=== PATIENT | male | born 1955 | race Caucasian/White ===

== ENCOUNTER 2023-01-06 20:46 | Emergency (ER) | payer MEDICARE, OTHER, SELFPAY ==
[2023-01-06 20:56] VITALS: PULSE 86; BMI 27.3
[2023-01-06 21:04] VITALS: BP 99/79; PULSE 64; RESP 16; TEMP 36.2; O2SAT 98
--- NOTE | 2023-01-06 21:07 | MHC.EDTECH ---
patient came in via ems from snf facility ,patient vitals sign taken ,patient was change into physic green jessica and blue pants ,pt very confused ,pt needed to void ,this pct assist pt with urinal ,pt void large amount of urine ,this pct leave patient for about 5 minutes and patient pee on the wall ,pt clothing locked in in bh pod ,pt wanted to keep his house slippers ,pt was getting agitated when i tried to take slippers ,charger operator helper mu said patient could keep slippers,this pct is assign to provide 1:1 with patient .
--- NOTE | 2023-01-06 21:09 | ED.GENADULT ---
HPI - General Adult General Chief complaint: General Medical Stated complaint: AMS Time Seen by Provider: 01/06/23 21:06 Source: EMS and RN notes reviewed Mode of arrival: EMS Limitations: altered mental status History of Present Illness HPI narrative: Patient's history of fronto temporal dementia with behavioral problems per setting in [facility] recently admitted and discharged from [facility] on 01/03/2023 for refusing to take medication and aggressive behavior towards the staff patient medication were adjusted started on Lexapro Namenda Aricept and trazodone and Zyprexa for agitation comes back from skilled nursing as they were unable to manage and patient refusing take the medication again in the ER on arrival patient is calm cooperative in with intermittent agitation was noticed by the staff urinating against a wall Related Data Home Medications Medication Instructions Recorded Confirmed acetaminophen 325 mg tablet 650 mg PO Q6H PRN Fever Or Pain 01/06/23 01/06/23 ascorbic acid (vitamin C) 500 mg 500 mg PO DAILY 01/06/23 01/06/23 tablet docusate sodium 100 mg capsule 100 mg PO DAILY PRN Constipation 01/06/23 01/06/23 (Colace) donepezil 5 mg tablet 5 mg PO DAILY@1500 01/06/23 01/06/23 escitalopram oxalate 10 mg tablet 10 mg PO DAILY 01/06/23 01/06/23 lorazepam 0.5 mg tablet 0.5 mg PO BID PRN Anxiety 01/06/23 01/06/23 melatonin 3 mg tablet 3 mg PO BEDTIME PRN Sleep 01/06/23 01/06/23 memantine 10 mg tablet 10 mg PO DAILY@1500 01/06/23 01/06/23 olanzapine 2.5 mg tablet (Zyprexa) 2.5 mg PO BID 01/06/23 01/06/23 olanzapine 2.5 mg tablet (Zyprexa) 2.5 mg PO TID PRN 01/06/23 01/06/23 agitation/psychosis polyethylene glycol 3350 17 gram 17 g PO DAILY 01/06/23 01/06/23 oral powder packet (Miralax) simethicone 80 mg chewable tablet 80 mg PO Q6H PRN .gas 01/06/23 01/06/23 tamsulosin 0.4 mg capsule 0.4 mg PO BEDTIME 01/06/23 01/06/23 trazodone 50 mg tablet 25 mg PO BID PRN 01/06/23 01/06/23 anxiety/insomnia/mild agitation vitamin E 268 mg (400 unit) capsule 268 mg PO DAILY 01/06/23 01/06/23 Allergies Allergy/AdvReac Type Severity Reaction Status Date / Time No Known Allergies Allergy Verified 01/06/23 21:47 Review of Systems Review of Systems: Yes Unobtainable due to mental status PMFSH Past Medical History Medical History BPH (benign prostatic hyperplasia) Frontotemporal dementia Social History Social History Advance Directives: No Advance Directives Information Provided: No Physical Exam ED Vital Signs: Vital Signs - 24 hr 01/06/23 21:04 01/06/23 22:00 01/07/23 05:50 Temperature 97.2 F 97.4 F 97.9 F Pulse Rate 64 76 54 Respiratory Rate 16 16 19 Blood Pressure 99/79 110/70 124/56 L Pulse Oximetry 98 97 95 Oxygen Delivery Method Room Air Room Air Room Air BMI result Body Mass Index 27.3 Appearance: Alert. Oriented1-2 No acute distress. Eyes: PERRLA, No Nystagmus ENT: Pharynx normal. Oral Mucosa moist Neck: Normal inspection. Neck supple. CVS: Normal heart rate and rhythm. Pulses normal. Respiratory: No respiratory distress. Equal air entry bilateral, no wheezing/rales/rhonchi Abdomen: Soft and nontender. Bowel sounds are present, no mass palpable, no CVA tenderness Skin: Skin warm and dry. Normal skin color. Normal skin turgor. Extremities: No lower extremity edema. No calf tenderness Neuro: Oriented X1-2. No motor deficit. No sensory deficit.No cerebellar signs , cranial nerves II-XII intact Medications Administered Discontinued Medications Generic Name Dose Route Start Last Admin Trade Name Freq PRN Reason Stop Dose Admin Olanzapine 5 mg 01/06/23 21:47 01/06/23 22:01 Olanzapine 5 Mg Tablet PO 01/06/23 21:48 5 mg ONCE ONE Administration Trazodone HCl 50 mg 01/06/23 21:51 01/06/23 22:01 Trazodone Hcl 50 Mg Tablet PO 01/06/23 21:52 50 mg ONCE ONE Administration Medical Decision Making Medical Decision Making MDM Narrative: Patient was more notable dementia with behavioral problem unable to manage at a skilled nursing will get care team involved for re-evaluation in the ER patient behaving normally slept well after Zyprexa Lab Data MDM Lab Attestation statement: I reviewed the patient's lab results. 01/06/23 22:36 01/06/23 22:36 Labs: Lab Results 01/06/23 01/06/23 01/06/23 Range/Units 22:36 22:36 22:37 WBC 14.1 H (4.8-10.8) X10*3/uL RBC 5.27 (4.60-5.80) X10*6/uL Hgb 15.8 (14.0-18.0) g/dl Hct 47.3 (42.0-52.0) % MCV 89.8 (80.0-98.0) fL MCH 30.0 (27.0-33.0) pg MCHC 33.4 (31.0-36.0) g/dl RDW 13.5 (11.0-16.0) % Plt Count 346 (160-400) X10*3/uL MPV 10.0 (9.4-12.4) fL Immature Gran % (Auto) 0.4 (0.0-0.4) % Neut % (Auto) 61.3 (45-73) % Lymph % (Auto) 26.0 (20-40) % [place] % (Auto) 8.8 (2-11) % Eos % (Auto) 3.0 (0-4) % Baso % (Auto) 0.5 (0-2) % Lymph # (Auto) 3.7 (1.2-4.9) X10*3/uL [place] # (Auto) 1.2 (0.1-1.2) X10*3/uL Eos # (Auto) 0.4 (0.0-0.4) X10*3/uL Baso # (Auto) 0.1 (0.0-0.2) X10*3/uL Abs Immat Gran (auto) 0.06 H (0.00-0.03) X10*3/uL Absolute Neuts (auto) 8.6 H (2.0-8.3) x10*3/uL Absolute Nucleated RBC 0.000 (0.0-0.012) X10*3/uL Nucleated RBC % (auto) 0.0 (0.0-0.2) /100WBC Sodium 142 (135-145) mmol/L Potassium 3.1 L (3.3-5.1) mmol/L Chloride 105 (96-108) mmol/L Carbon Dioxide 24 (22-29) mmol/L Anion Gap 16 (12-20) BUN 33 H (9-16) mg/dL Creatinine 1.14 (0.5-1.4) mg/dL Estim Creat Clear Calc 62.6 Estimated GFR > 60 Random Glucose 100 (60-115) mg/dL Calcium 9.3 (8.4-10.2) mg/dL Total Bilirubin 2.5 H (0.0-1.0) mg/dL AST 35 (5-37) U/L ALT 65 H (0-40) U/L Alkaline Phosphatase 89 (39-117) U/L Total Protein 7.3 (6.5-8.0) g/dL Albumin 4.0 (3.5-5.0) g/dL COVID-19 ([facility]UL[facility]) Negative (Negative) COVID-19 Clin Com See Note Discharge Plan Discharge Clinical Impression: Behavioral variant frontotemporal dementia Patient Disposition: Still a Patient Prescriptions: No Action donepezil 5 mg Tablet 5 mg PO DAILY@1500 melatonin 3 mg Tablet 3 mg PO BEDTIME PRN (Reason: Sleep) ascorbic acid (vitamin C) 500 mg Tablet 500 mg PO DAILY tamsulosin 0.4 mg Capsule 0.4 mg PO BEDTIME docusate sodium [Colace] 100 mg Capsule 100 mg PO DAILY PRN (Reason: Constipation) simethicone 80 mg Tablet,Chewable 80 mg PO Q6H PRN (Reason: .gas) escitalopram oxalate 10 mg Tablet 10 mg PO DAILY polyethylene glycol 3350 [Miralax] 17 gram Powder In Packet 17 g PO DAILY lorazepam 0.5 mg Tablet 0.5 mg PO BID PRN (Reason: Anxiety) vitamin E [Vitamin E-400] 268 mg (400 unit) Capsule 268 mg PO DAILY memantine 10 mg Tablet 10 mg PO DAILY@1500 trazodone 50 mg Tablet 25 mg PO BID PRN (Reason: anxiety/insomnia/mild agitation) olanzapine [Zyprexa] 2.5 mg Tablet 2.5 mg PO BID Rx Instructions: in addition to 2.5 mg tid prn order olanzapine [Zyprexa] 2.5 mg Tablet 2.5 mg PO TID PRN (Reason: agitation/psychosis) Rx Instructions: in addition to 2.5 mg bid dose acetaminophen 325 mg Tablet 650 mg PO Q6H PRN (Reason: Fever Or Pain)
[2023-01-06 22:00] VITALS: BP 110/70; PULSE 76; RESP 16; TEMP 36.3; O2SAT 97
[2023-01-06] MEDS: traZODone HCL 50 MG TABLET PO (22:01)
[2023-01-06] MEDS: OLANZapine 5 MG TABLET PO (22:01)
--- NOTE | 2023-01-06 22:22 | PHA.MEDREC ---
Pharmacy Consult ? Medication Reconciliation Pharmacy has completed the medication reconciliation. Completed med rec using list from [facility].
--- NOTE | 2023-01-06 22:38 | MHC.EDTECH ---
this pct was able to draw patient labs and collect covid swab and sent to lab ,after patient was medicated by rn ,this pct offer patient food pt ate half tuna fish sandwich and 240 ml water .
[2023-01-06 22:40] LABS: MANUAL DIFF FLAG NO
[2023-01-06 22:42] LABS: Basophils Absolute Auto 0.1 X10*3/uL (0.0-0.2); Basophils Percent Auto 0.5 % (0-2); Eosinophils Absolute Auto 0.4 X10*3/uL (0.0-0.4); Hematocrit 47.3 % (42.0-52.0); Hemoglobin 15.8 g/dl (14.0-18.0); Imm Gran Abs Auto 0.06 X10*3/uL (0.00-0.03); Imm Gran Pct Auto 0.4 % (0.0-0.4); Lymphocytes Absolute Auto 3.7 X10*3/uL (1.2-4.9); Mean Corpuscular HGB Conc 33.4 g/dl (31.0-36.0); Mean Corpuscular Volume 89.8 fL (80.0-98.0); Monocytes Absolute Auto 1.2 X10*3/uL (0.1-1.2); Monocytes Percent Auto 8.8 % (2-11); Neutrophils Absolute Auto 8.6 x10*3/uL (2.0-8.3); Neutrophils Percent Auto 61.3 % (45-73); Platelet Count 346 X10*3/uL (160-400); Red Blood Count 5.27 X10*6/uL (4.60-5.80); Red Cell Distribution Width 13.5 % (11.0-16.0); White Blood Count 14.1 X10*3/uL (4.8-10.8)
[2023-01-06 22:57] LABS: COVID-19 Test Negative (Negative); IDNOW Serial# 16C4AD1C
[2023-01-06 22:59] LABS: Alanine Aminotransferase 65 U/L (0-40); Alkaline Phosphatase 89 U/L (39-117); Anion Gap 16 (12-20); Aspartate Amino Transferase 35 U/L (5-37); Bilirubin Total 2.5 mg/dL (0.0-1.0); Blood Urea Nitrogen 33 mg/dL (9-16); Calcium 9.3 mg/dL (8.4-10.2); Carbon Dioxide 24 mmol/L (22-29); Chloride 105 mmol/L (96-108); Creatinine Clr Calc Pharmacy 62.6; Estimated Glomerular Filt Rate > 60; Glucose Random 100 mg/dL (60-115); Potassium 3.1 mmol/L (3.3-5.1); Sodium 142 mmol/L (135-145); Total Protein 7.3 g/dL (6.5-8.0)
[2023-01-07 05:50] VITALS: BP 124/56; PULSE 54; RESP 19; TEMP 36.6; O2SAT 95
[2023-01-07 07:06] VITALS: BP 102/67; PULSE 62; RESP 20; O2SAT 96
[2023-01-07 11:01] VITALS: BP 128/77; PULSE 59; RESP 16; O2SAT 99
--- NOTE | 2023-01-07 11:31 | MHC.EDTECH ---
Pt was incontinentof urine. Pt was given a partial bed bath. Pt was anxious but cooaperative when touching his genitals. Pt refused putti
--- NOTE | 2023-01-07 11:33 | MHC.EDTECH ---
Pt was incontinent of urine. Pt was assisted to BR, he was able to ambulate with stand by assistance. Pt was given a partial bed bath. Pt was anxious but cooperative when touching his genitals. Pt had dried bm in between buttocks. Pt refused pants because he was feeling very uncomfortable. Pt was assisted back to bed. He then requested and was given a drink.
--- NOTE | 2023-01-07 12:03 | MHC.CARE ---
CARE Team spoke with Brittanie Ruiz at? [facility] who reported Pt has been a resident since September of 2022 and carries a dx of frontal lobe dementia.? Pt? was residing in the community until the fall when he was section'd from the community for SI after he was served an eviction notice, following this Pt was placed at [facility] until he was placed at [facility] for buttermaker care on the locked dementia unit. She reported Pt was diagnosed with dementia at [facility] in fall. ? She reports he currently has a court appointed guardian and [facility]. Pt is consistently non-medication compliant, can be intrusive and not redirectable. Pt was recently at [facility] ED for similar circumstances and had medication change but subsequently refused medication.? Pt is currently being followed by Nadeem Garcia, [facility].?? She reported Pt has limited social supports. Pts exwife was initially involved but not currently. 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 She reported both parents are and Pt has multiple siblings though they have no relationship with them as when Pts father was Pt was granted as the executor of the estate and created discord within family.
[2023-01-07 12:22] LABS: Appearance Urine Cloudy; Color Urine Dark Yellow; Glucose Urine UA Negative (Negative); Leukocyte Esterase Urine Moderate (2+) (Negative); Nitrite Urine Negative (Negative); PH 5.5 (5.0-9.0); Specific Gravity - Urine 1.025 (1.005-1.025); UMIC TRIGGER UACC YES; Urine Blood Moderate (2+) (Negative); Urine Ketones Negative (Negative); Urine Protein Trace mg/dL (Neg-Trace)
[2023-01-07 12:25] LABS: Bacteria Urine None Seen (None Seen); Hyaline Casts Urine 0-2 /LPF (0-2); UACC Culture Trigger YES
--- NOTE | 2023-01-07 15:19 | PC.NURSE ---
camera placed in room for safety for pts history of wandering. he was also offered a hospital bed for comfort while waiting disposition.
--- NOTE | 2023-01-07 16:59 | PC.NURSE ---
Pt becoming increasingly agitated that he cannot leave and be back with his friends. Was resistant to change bedding and hospital attire
--- NOTE | 2023-01-07 17:26 | PM.PSYCN ---
History of Present Illness Date of Service: t Chief Complaint: AMS Reason for Consult: Agitation Discussed with referring provider: Yes Sources of Information: patient interviewed, chart reviewed and crisis/core team assessment reviewed HPI Narrative: The patient is a 67 year old male, with a prior diagnosis of fronto-temporal dementia, referred from an SNF due to agitation and aggressive behavior, non-compliant of medications. He was recently discharged from [facility] on 01/03 to the SNF and referred here to the ED. On admission, he was beligerant and agitated, he urinated against the wall and refused to take medications. A consult was asked for medicatoon management. On interview, he was initially hostile but it was evident that he was disoriented on place and time, unable to provide a history why he was here, disoriented and perseverative with the idea that he has to leave the ED. He was tangential but I was able to de-escalate him verbally at the beginning. Later, I consulted with the team and he was diagnosed with a UTI. I explained his diagnosis and the need of ATB and medical treatmetn but later, he refused to take medications and security needed to be called. He received Zyprexa 5 mg IM. Past Psychiatric History: Unable to provide but he was diagnosed recently with Fronto-Temporal dementia Medical Evaluation Reviewed: Yes Review of Systems Review of Systems Yes Unobtainable due to mental status [facility] Medical History BPH (benign prostatic hyperplasia) Frontotemporal dementia Family History: Denies Social History: Unable to provide Substance History: Denies Trauma History: Denies Diagnostics Vital Signs (24Hr): Vital Signs - 24 hr 01/06/23 21:04 01/06/23 22:00 01/07/23 05:50 Temperature 97.2 F 97.4 F 97.9 F Pulse Rate 64 76 54 Respiratory Rate 16 16 19 Blood Pressure 99/79 110/70 124/56 L Pulse Oximetry 98 97 95 Oxygen Delivery Method Room Air Room Air Room Air 01/07/23 07:06 01/07/23 11:01 Temperature Pulse Rate 62 59 Respiratory Rate 20 16 Blood Pressure 102/67 128/77 Pulse Oximetry 96 99 Oxygen Delivery Method Room Air BMI result Body Mass Index 27.3 Labs 01/06/23 22:36 01/06/23 22:36 Labs: Laboratory Results - last 48 hr 01/06/23 01/06/23 01/06/23 22:36 22:36 22:37 WBC 14.1 H RBC 5.27 Hgb 15.8 Hct 47.3 MCV 89.8 MCH 30.0 MCHC 33.4 RDW 13.5 Plt Count 346 MPV 10.0 Immature Gran % (Auto) 0.4 Neut % (Auto) 61.3 Lymph % (Auto) 26.0 [place] % (Auto) 8.8 Eos % (Auto) 3.0 Baso % (Auto) 0.5 Lymph # (Auto) 3.7 [place] # (Auto) 1.2 Eos # (Auto) 0.4 Baso # (Auto) 0.1 Abs Immat Gran (auto) 0.06 H Absolute Neuts (auto) 8.6 H Absolute Nucleated RBC 0.000 Nucleated RBC % (auto) 0.0 Sodium 142 Potassium 3.1 L Chloride 105 Carbon Dioxide 24 Anion Gap 16 BUN 33 H Creatinine 1.14 Estim Creat Clear Calc 62.6 Estimated GFR > 60 Random Glucose 100 Calcium 9.3 Total Bilirubin 2.5 H AST 35 ALT 65 H Alkaline Phosphatase 89 Total Protein 7.3 Albumin 4.0 Urine Color Urine Appearance Urine pH Ur Specific [place] Urine Protein Urine Glucose (UA) Urine Ketones Urine Blood Urine Nitrite Ur Leukocyte Esterase Urine RBC Urine WBC Ur Squamous Epith Cells Urine Bacteria Hyaline Casts COVID-19 ([facility]) Negative COVID-19 Clin Com See Note 01/07/23 11:53 WBC RBC Hgb Hct MCV MCH MCHC RDW Plt Count MPV Immature Gran % (Auto) Neut % (Auto) Lymph % (Auto) [place] % (Auto) Eos % (Auto) Baso % (Auto) Lymph # (Auto) [place] # (Auto) Eos # (Auto) Baso # (Auto) Abs Immat Gran (auto) Absolute Neuts (auto) Absolute Nucleated RBC Nucleated RBC % (auto) Sodium Potassium Chloride Carbon Dioxide Anion Gap BUN Creatinine Estim Creat Clear Calc Estimated GFR Random Glucose Calcium Total Bilirubin AST ALT Alkaline Phosphatase Total Protein Albumin Urine Color Dark Yellow Urine Appearance Cloudy Urine pH 5.5 Ur Specific [place] 1.025 Urine Protein Trace Urine Glucose (UA) Negative Urine Ketones Negative Urine Blood Moderate (2+) H Urine Nitrite Negative Ur Leukocyte Esterase Moderate (2+) H Urine RBC 11-20 H Urine WBC 11-20 H Ur Squamous Epith Cells 6-10 Urine Bacteria None Seen Hyaline Casts 0-2 COVID-19 ([facility]) COVID-19 Clin Com Mental Status Exam Mental Status Exam Patient Appearance: Appropriate (on hospital gowns, he has stains of feces on the bed) Patient Orientation: Person Level of Consciousness: Awake and Restless Patient Behavior: Suspicious, Restless and Belligerent Mood Description: Suspicious and Hostile Affect Description: Labile Patient Cognition Impaired: Yes Ability to Follow Directions: Poor Speech Pattern: Clear Hallucinations: None Delusions: Paranoid Ideation Thought Process: Slowed Thinking and Confusion Thought Content: positive for Obsessional Thoughts and positive for Loose Associations Judgement: Poor Medications Medications Current Medications Acetaminophen (Acetaminophen 325 Mg Tablet) 650 mg PO Q6H PRN PRN Reason: Fever Or Pain Ascorbic Acid (Ascorbic Acid 500 Mg Tablet) 500 mg PO DAILY [facility] Cefuroxime Axetil (Cefuroxime Axetil 250 Mg Tablet) 250 mg PO BID [facility] Docusate Sodium (Docusate Sodium 100 Mg Capsule) 100 mg PO DAILY PRN PRN Reason: Constipation Donepezil HCl (Donepezil Hcl 5 Mg Tablet) 5 mg PO DAILY@1500 [facility] Escitalopram Oxalate (Escitalopram Oxalate 10 Mg Tablet) 10 mg PO DAILY [facility] Lorazepam (Lorazepam 0.5 Mg Tablet) 0.5 mg PO BID PRN PRN Reason: Anxiety Melatonin (Melatonin 3 Mg Tablet) 3 mg PO BEDTIME PRN PRN Reason: Sleep Memantine (Memantine Hcl 10 Mg Tablet) 10 mg PO DAILY@1500 [facility] Olanzapine (Olanzapine 2.5 Mg Tablet) 2.5 mg PO BID [facility] Olanzapine (Olanzapine 2.5 Mg Tablet) 2.5 mg PO TID PRN PRN Reason: agitation/psychosis Pharmacy Consult (Consult Rx Perform Med Rec) 1 each MISCELLANE ONCE PRN PRN Reason: Consult order Polyethylene Glycol (Polyethylene Glycol 3350 17 Gm Powd.Pack) 17 gm PO DAILY [facility] Simethicone (Simethicone 80 Mg Tab.Chew) 80 mg PO Q6H PRN PRN Reason: .gas Tamsulosin HCl (Tamsulosin Hcl 0.4 Mg Capsule) 0.4 mg PO BEDTIME [facility] Trazodone HCl (Trazodone Hcl 25 Mg Halftab) 25 mg PO BID PRN PRN Reason: anxiety/insomnia/mild agitation Vitamin E (Vitamin E (Dl,Tocopheryl Acet) 180 Mg (400 Unit) Capsule) 180 mg PO DAILY [facility] Allergies Allergies Allergy/AdvReac Type Severity Reaction Status Date / Time No Known Allergies Allergy Verified 01/06/23 21:47 Assessment & Plan Assessment & Plan (1) Behavioral variant frontotemporal dementia: Status: Acute Code(s): G31.09 - Other frontotemporal neurocognitive disorder; F02.818 - Dementia in other diseases classified elsewhere, unspecified severity, with other behavioral disturbance (2) Delirium: Status: Acute Code(s): R41.0 - Disorientation, unspecified (3) Urinary tract infection: Status: Acute Code(s): N39.0 - Urinary tract infection, site not specified Plan The patient is an elderly male with fronto-temporal dementia, UTI and altered mental status admitted from SNF due to agitation and aggression. On the ED he was diagnosed of a UTI and he showed disorganized behavior such as urinating in the wall and refusal of treatmetn. Plan 1. Gather collateral information. 2. Continue medical treatment of UTI and other medical problems 3. If agitated, Zyprexa 5 mg IM. 4. Continue with regular psychotropics. 5. Reassessment as demand. 6. At this moment, the patient does not have capacity to take informed decisions due to dementia and delirium (due to UTI). Total time managing care of this patient today __45__ minutes. Patient educated on: diagnosis, therapeutic strategies and medical condition Informed Consent: does not understand
[2023-01-07] MEDS: LORazepam 0.5 MG TABLET PO (17:45)
[2023-01-07] MEDS: OLANZapine 10 MG VIAL 5 MG IM (17:46)
[2023-01-07] MEDS: OLANZapine 2.5 MG TABLET PO ×2 (17:47→21:46)
--- NOTE | 2023-01-07 20:33 | PC.NURSE ---
late entry-pt attempted to get out of bed. camera alarm sounded. this rn, rn , and cupola charger insulation attempted to re orient pt and get pt back into bed. per [employer]ola charger insulation pt was incontinent of urine on floor. pt back into bed. pt sleeping at this time
[2023-01-07] MEDS: Tamsulosin HCL 0.4 MG CAPSULE PO (21:46)
--- NOTE | 2023-01-07 22:03 | PC.NURSE ---
pt medicated according to mar. pt agitated with this rn while taking medication. camera alarm in place. pt provided with drink and pudding
[2023-01-08 00:01] VITALS: BP 114/62; PULSE 57; RESP 17; TEMP 36.5; O2SAT 97
--- NOTE | 2023-01-08 00:49 | PC.NURSE ---
pt camera alarm sounding as pt was getting out of bed. pt states he wants to use bedside commode. this rn attempted to assist pt in positioning self in front of commode. pt refused assistance. pt urinated on floor. this rn changed bed linens as pt had also been incontinent of urine. pt changed into clean ligature free gown. pt repositioned back to bed.
--- NOTE | 2023-01-08 04:22 | PC.NURSE ---
pt resting comfortably on tretcher at this time
[2023-01-08 06:44] VITALS: BP 129/87; PULSE 70; RESP 16; O2SAT 97
[2023-01-08] MEDS: OLANZapine 2.5 MG TABLET PO ×2 (10:09→21:08)
[2023-01-08] MEDS: Escitalopram Oxalate 10 MG TABLET PO (10:10)
[2023-01-08] MEDS: Ascorbic Acid 500 MG TABLET PO (10:10)
[2023-01-08] MEDS: polyethylene glycoL 3350 17 GM POWD.PACK PO (10:15)
[2023-01-08 10:20] VITALS: BP 121/86; PULSE 77
--- NOTE | 2023-01-08 10:49 | PC.NURSE ---
ASSUMED CARE OF THIS PT 0700. PT PLEASANTLY CONFUSED, UNABLE TO APPROPRIATELY ANSWER SUICIDAL RISK ASSESSMENT QUESTIONS, VSS, HE DENIES PAIN. PT COMPLIANT WITH MEDS. INCONTINENT CARE AND COMPLETE BED CHANGE DONE. PT SEEN BY CARE TEAM.
[2023-01-08] MEDS: Potassium Chloride Packet 20 MEQ PACKET 40 MEQ PO (11:10)
[2023-01-08] MEDS: Donepezil HCl 5 MG TABLET PO (15:27)
[2023-01-08] MEDS: Memantine HCl 10 MG TABLET PO (15:27)
[2023-01-08 21:06] VITALS: BP 140/83; PULSE 57; RESP 12; TEMP 36.6; O2SAT 98
[2023-01-08] MEDS: Tamsulosin HCL 0.4 MG CAPSULE PO (21:08)
--- NOTE | 2023-01-08 22:19 | PC.NURSE ---
Assumed care for this pt at 1900. Pt alert not oriented. Has been calm and cooperative. Resting at the bedside. Medicated as ordered. Pt tolerated well. No apparent distress noted. Pt continues to be in observation with camera/monitor at bedside. Will continue to monitor.
[2023-01-09 00:04] VITALS: BP 125/83; PULSE 59; RESP 12; TEMP 36.6; O2SAT 99
--- NOTE | 2023-01-09 04:19 | PC.NURSE ---
Pt sleeping at the bedside in no apparent distress. Breaths are even and unlabored with equal chest rises. Will continue to monitor.
[2023-01-09 05:30] VITALS: BP 120/75; PULSE 70; TEMP 36.7; O2SAT 99
[2023-01-09] MEDS: polyethylene glycoL 3350 17 GM POWD.PACK PO (07:20)
[2023-01-09] MEDS: Ascorbic Acid 500 MG TABLET PO (07:20)
[2023-01-09] MEDS: OLANZapine 2.5 MG TABLET PO ×2 (07:21→15:46)
[2023-01-09] MEDS: Escitalopram Oxalate 10 MG TABLET PO (07:21)
--- NOTE | 2023-01-09 07:26 | PC.NURSE ---
Pt alert to self only. Tolerated 1/4 breakfast and drinking fluids. Difficulty making needs known. Needs redirection to perform task. Accepted meds but chews medicated despite redirection. Calm and cooperative. Will obtain hospital bed for comfort/safety
--- NOTE | 2023-01-09 08:44 | PC.NURSE ---
Pt changed to hospital, appears more comfortable and new hospital attire given d/t urine incontinence
[2023-01-09 10:00] VITALS: BP 135/83; PULSE 64; RESP 12; TEMP 36.8; O2SAT 98
--- NOTE | 2023-01-09 11:07 | PC.NURSE ---
assumed care of pt at 1100, pt sleeping, camera at bedside.
--- NOTE | 2023-01-09 13:45 | PC.NURSE ---
pt ate 100% of lunch, resting quietly in bed, camera at bedside.
--- NOTE | 2023-01-09 13:53 | MHC.CM.ED ---
Received consult for d/c planning assistance. CM consulted as CARE team could not reach [facility] to discuss pt return. Pt brought in from SNF w/aggressive behaviors: cleared by CARE team - no need for INPT psych placement. Pt noted to have a UTI and was started on po antibiotics: pt with known dementia and hx of aggitation/aggression. Call placed to [facility]: spoke w/nurse Falguni who states pt cannot return to facility d/t behavior. Requested to speak with BERTHA. Call placed to BERTHA Marie at [phone]. Cynthia states pt has a hx of behaviors and non compliance w/meds. Cynthia notes that pt was recently brought to [facility] 6 days ago for the same issues but returned to the SNF. I m hoping you guys can keep him until he's more manageable Discussed Rachid's order in progress w/court by pt's guardian, lack of medical necessity for admission and psych clearance as evidence that a workup has been successfully completed and pt is able to return. Cynthia states she will instruct her staff to call 911 should pt's behaviors escalate again. Above relayed to ED PA who will give pt his next po dose of ATB prior to returning to facility. Pt to be transported BLS by Shailesh for 4pm. Cynthia called again with time of pt's return.
[2023-01-09] MEDS: Donepezil HCl 5 MG TABLET PO (15:45)
[2023-01-09] MEDS: LORazepam 0.5 MG TABLET PO (15:46)
[2023-01-09] MEDS: Memantine HCl 10 MG TABLET PO (15:46)
--- NOTE | 2023-01-09 15:51 | PC.NURSE ---
pt alert, oriented to person, medicated per provider request - abx given early at request of SNF, PRN medication given. pt resting quietly.
--- NOTE | 2023-01-09 18:45 | PC.NURSE ---
attempted to call in RN-RN report to [facility], no answer to facility phone number, called and LM w CNO number in case management note.
== END 2023-01-09 16:38 | disposition skilled nursing facility (03) ==
PROVIDERS: Emergency Provider Internal Medicine
DX: N39.0 Urinary tract infection, site not specified (principal); B95.2 Enterococcus as the cause of diseases classified elsewhere; G31.09 Other frontotemporal neurocognitive disorder; F02.811 Dementia in other diseases classified elsewhere, unspecified severity, with agitation; Z91.14 Patient's other noncompliance with medication regimen; Z20.822 Contact with and (suspected) exposure to COVID-19
CPT/HCPCS: 80053; 81001; 85025; 87086; 87088; 87186; 87635; 99284; 99285

== ENCOUNTER 2024-02-13 17:30 | Emergency (ER) | payer MEDICARE, MEDICAID, SELFPAY ==
--- NOTE | ~2024-02-13 | CT_ITS ---
EXAMINATION: CT HEAD WITHOUT CONTRAST CLINICAL INFORMATION: Unwitnessed fall. COMPARISON: None. TECHNIQUE: Contiguous axial imaging was performed from the skullbase to vertex without intravenous administration of contrast. Limited study with motion artifacts. This CT examination was performed using dose optimization techniques as appropriate, variously including the following: *Automated exposure control *Adjustment of mA and/or kV according to patient size (this includes techniques or standardized protocols for targeted exams where dose is matched to indication/reason for exam; i.e. extremities or head) *Use of iterative reconstruction technique DLP: 636 mGy-cm. FINDINGS: There is no evidence of acute intracranial hemorrhage or territorial infarction. No abnormal mass effect or midline shift is seen. [place] to white matter differentiation is well preserved. No extra-axial fluid collections are identified. Significant diffuse brain parenchymal volume loss is noted with commensurate ex vacuo dilatation of the ventricles. Extensive chronic white matter microangiopathic changes are present. The osseous structures and soft tissues are normal. The mastoid air cells and visualized portions of the paranasal sinuses are fairly well aerated. CT/CT head/brain wo IV con IMPRESSION: Limited examination with motion artifacts. No acute intracranial hemorrhage or territorial infarction. Extensive chronic white matter microangiopathy and moderate to severe diffuse brain parenchymal volume loss.
--- NOTE | ~2024-02-13 | CT_ITS ---
EXAMINATION: CT CERVICAL SPINE WITHOUT CONTRAST CLINICAL INFORMATION: Unwitnessed fall. COMPARISON: None available. TECHNIQUE: Contiguous axial imaging was performed of the cervical spine without intravenous administration of contrast. Coronal and sagittal reformats were obtained at the acquisition workstation. This CT examination was performed using dose optimization techniques as appropriate, variously including the following: *Automated exposure control *Adjustment of mA and/or kV according to patient size (this includes techniques or standardized protocols for targeted exams where dose is matched to indication/reason for exam; i.e. extremities or head) *Use of iterative reconstruction technique DLP: 528 mGy-cm FINDINGS: The atlantooccipital and atlantoaxial articulations remain well aligned. Straightening of the normal cervical lordosis. Minimal anterolisthesis of C7 over T1. Otherwise, there is anatomic alignment of the vertebral bodies and posterior elements. No evidence of acute fracture or subluxation. The vertebral body heights are maintained. Multilevel cervical spondylosis with marginal osteophytes, uncovertebral hypertrophy and moderate to severe facet arthropathy. Degenerative disc disease is most pronounced at C6-C7 with endplate degenerative changes and moderate to severe intervertebral disc space narrowing. Moderate intervertebral disc space narrowing at C7-T1. Few foci of air adjacent to the left neural foramen at C6-C7. Multiple degrees of foraminal narrowing with severe left foraminal narrowing at C3-C4 and moderate left foraminal narrowing at at C6-C7. The thyroid gland and remaining cervical soft tissues are within normal limits. The lung apices demonstrate no abnormalities. CT/CT cervical spine wo IV con IMPRESSION: 1. No acute fracture or traumatic subluxation involving the cervical spine. 2. Multilevel cervical spondylosis as detailed.
[2024-02-13 17:43] VITALS: BP 113/72; BP 120/21; PULSE 67; PULSE 76; RESP 16; TEMP 36.3; O2SAT 97; BMI 26.8
--- NOTE | 2024-02-13 17:50 | ECG_ITS ---
Test Reason : FALL Blood Pressure : / mmHG Vent. Rate : 062 BPM Atrial Rate : 062 BPM P-R Int : 174 ms QRS Dur : 106 ms QT Int : 420 ms P-R-T Axes : 032 -17 013 degrees QTc Int : 426 ms Normal sinus rhythm Incomplete right bundle branch block Borderline ECG No previous ECGs available Referred By: Shanique Waite Electronically Signed By:ASHLY CRAWFORD MD
--- NOTE | 2024-02-13 18:06 | ED_ITS ---
HPI - Fall General Chief Complaint: Fall Stated Complaint: UNWITNESSED FALL Time Seen by Provider: 02/13/24 17:42 Source: EMS Mode of arrival: EMS History of Present Illness HPI Narrative: 68-year-old male with significant history of major depressive disorder, suicidal ideation is brought in from [facility] via EMS for unwitnessed fall, patient was found on hands and knees trying to get up, unclear whether not loss consciousness and reports of no chronic anticoagulation. Patient is not participating in the discussion. Related Data Home Medications Medication Instructions Recorded Confirmed acetaminophen 325 mg tablet 650 mg PO Q6H PRN Fever Or Pain 01/06/23 01/06/23 ascorbic acid (vitamin C) 500 mg 500 mg PO DAILY 01/06/23 01/06/23 tablet docusate sodium 100 mg capsule 100 mg PO DAILY PRN Constipation 01/06/23 01/06/23 (Colace) donepezil 5 mg tablet 5 mg PO DAILY@1500 01/06/23 01/06/23 escitalopram oxalate 10 mg tablet 10 mg PO DAILY 01/06/23 01/06/23 lorazepam 0.5 mg tablet 0.5 mg PO BID PRN Anxiety 01/06/23 01/06/23 melatonin 3 mg tablet 3 mg PO BEDTIME PRN Sleep 01/06/23 01/06/23 memantine 10 mg tablet 10 mg PO DAILY@1500 01/06/23 01/06/23 olanzapine 2.5 mg tablet (Zyprexa) 2.5 mg PO BID 01/06/23 01/06/23 olanzapine 2.5 mg tablet (Zyprexa) 2.5 mg PO TID PRN 01/06/23 01/06/23 agitation/psychosis polyethylene glycol 3350 17 gram 17 g PO DAILY 01/06/23 01/06/23 oral powder packet (Miralax) simethicone 80 mg chewable tablet 80 mg PO Q6H PRN .gas 01/06/23 01/06/23 tamsulosin 0.4 mg capsule 0.4 mg PO BEDTIME 01/06/23 01/06/23 trazodone 50 mg tablet 25 mg PO BID PRN 01/06/23 01/06/23 anxiety/insomnia/mild agitation vitamin E 268 mg (400 unit) capsule 268 mg PO DAILY 01/06/23 01/06/23 Previous Rx's Medication Instructions Recorded cefuroxime axetil 250 mg tablet 250 mg PO BID 5 days #10 tabs 01/09/23 nitrofurantoin 100 mg PO Q12H 7 days #14 caps 02/13/24 monohydrate/macrocrystals 100 mg capsule (Macrobid) Allergies Allergy/AdvReac Type Severity Reaction Status Date / Time No Known Allergies Allergy Verified 02/13/24 17:42 Review of Systems 2 Review of Systems: Yes Unobtainable due to mental condition PMFSH Past Medical History Source: nursing notes reviewed Medical History BPH (benign prostatic hyperplasia) Frontotemporal dementia Physical Exam 2 Vital Signs: Vital Signs: Last Vital Signs Temp 97.4 F 02/13/24 17:43 Pulse 67 02/13/24 17:43 Resp 16 02/13/24 17:43 BP 113/72 02/13/24 17:43 Pulse Ox 97 02/13/24 17:43 O2 Del Method Room Air 02/13/24 17:43 BMI result Body Mass Index 26.8 VITAL SIGNS: Reviewed. GENERAL: Well developed, well nourished, in no acute distress. HEAD: Normocephalic/atraumatic EYES: PERRLA, EOMI EARS: Ext canals without abnormality NOSE: Nares patent bilateral OROPHARYNX: no oral lesions noted, posterior pharynx clear NECK: Supple, no adenopathy LUNGS: Normal breath sounds. No adventitious sounds or accessory muscle use. SpO2<97> CARDIOVASCULAR: Regular rate and rhythm without noted murmurs ABDOMEN: Soft, non-tender, non-distended with bowel sounds. MUSCULOSKELETAL: No tenderness, deformities, or effusions noted on gross inspection. EXTREMITIES: No cyanosis, clubbing or edema. SKIN: Inspection of the skin reveals no rashes NEUROLOGIC: Alert and oriented x 2. Strength and sensation to light touch were grossly intact x 4. Medical Decision Making Medical Decision Making MDM Narrative: 68-year-old male with history and clinical presentation, DDX: Unwitnessed fall and will rule out infections/anemia/electrolyte derangement/arrhythmia and also obtain CT imaging of head and neck although patient is not on chronic anticoagulation. I reviewed all investigations and hematologic indices are negative for leukocytosis or left shift, there is no anemia or thrombocytopenia. Laboratory has once again been in able to process the chemistry results but troponin is noted to be undetectable and there are no acute changes on EKG. Patient has no complaints of shortness of breath or chest pain. Patient appears otherwise hemodynamically stable, he became physically aggressive with staff when they were attempting to redraw the chemistry and has an aggressive history. At this time I feel that patient is otherwise clinically and historically stable, CT does not show any evidence of intracranial hemorrhage or mass effect and cervical spine is negative for fracture or subluxation. Urinalysis is significant for urinary tract infection for which the patient will be treated. Differential Diagnosis Differential Diagnoses: The differential diagnosis associated with the presentation includes Please see the discussion above Admission/Observation Consideration of admission/observation: Escalation of care including admission/observation considered Please see the discussion above Lab Data MDM Lab Attestation statement: I reviewed the patient's lab results. Please see the discussion above 02/13/24 18:07 02/13/24 18:07 Labs: Lab Results 02/13/24 Range/Units 18:07 WBC 10.6 (4.8-10.8) X10*3/uL RBC 4.96 (4.60-5.80) X10*6/uL Hgb 16.0 (14.0-18.0) g/dl Hct 45.6 (42.0-52.0) % MCV 91.9 (80.0-98.0) fL MCH 32.3 (27.0-33.0) pg MCHC 35.1 (31.0-36.0) g/dl RDW 12.9 (11.0-16.0) % Plt Count 186 D (160-400) X10*3/uL MPV 10.3 (9.4-12.4) fL Immature Gran % (Auto) 0.6 H (0.0-0.4) % Neut % (Auto) 71.8 (45-73) % Lymph % (Auto) 18.8 L (20-40) % [place] % (Auto) 7.5 (2-11) % Eos % (Auto) 0.9 (0-4) % Baso % (Auto) 0.4 (0-2) % Lymph # (Auto) 2.0 (1.2-4.9) X10*3/uL [place] # (Auto) 0.8 (0.1-1.2) X10*3/uL Eos # (Auto) 0.1 (0.0-0.4) X10*3/uL Baso # (Auto) 0.0 (0.0-0.2) X10*3/uL Abs Immat Gran (auto) 0.06 H (0.00-0.03) X10*3/uL Absolute Neuts (auto) 7.6 (2.0-8.3) x10*3/uL Absolute Nucleated RBC 0.000 (0.0-0.012) X10*3/uL Nucleated RBC % (auto) 0.0 (0.0-0.2) /100WBC Troponin I High Sens < 2.7 (<3.5-35.0) ng/L Independent Interpretation I performed an independent interpretation of an: EKG Interpretation: Normal sinus rhythm, HR -62, no STEMI, incomplete right bundle branch block, there is no EKG for comparison, [place]/QTC are within normal limits and QRS-106 Radiology Impression Discussion of test interpretation with radiology: I have reviewed the radiologist's reading. Radiologist Impression: Please see the discussion above External Record Review External record reviewed: Outpatient record, Prior outpatient labs and Prior outpatient radiology Critical Care Time Critical Care Time Critical Care Time: Yes Total Critical Care Time: 45 Attestation: I personally attest to this time spent taking care of the patient. Discharge Plan Discharge Clinical Impression: Urinary tract infection, Fall Patient Disposition: Xfer Other Instructions: Urinary Tract Infection in Men (ED), Fall Prevention (ED) Additional Instructions: 1. Resume all home medications as prescribed. 2. Complete the entire course of antibiotics as prescribed. 3. Supervising physician should follow-up on urine culture to ensure appropriate coverage for the UTI. Return to the ER for any worsening symptoms. Prescriptions: New nitrofurantoin monohyd/m-cryst [Macrobid] 100 mg capsule 100 mg PO Q12H 7 Days Qty: 14 0RF Rx Instructions: must administer with a meal/food No Action donepezil 5 mg Tablet 5 mg PO DAILY@1500 melatonin 3 mg Tablet 3 mg PO BEDTIME PRN (Reason: Sleep) ascorbic acid (vitamin C) 500 mg Tablet 500 mg PO DAILY tamsulosin 0.4 mg Capsule 0.4 mg PO BEDTIME docusate sodium [Colace] 100 mg Capsule 100 mg PO DAILY PRN (Reason: Constipation) simethicone 80 mg Tablet,Chewable 80 mg PO Q6H PRN (Reason: .gas) escitalopram oxalate 10 mg Tablet 10 mg PO DAILY polyethylene glycol 3350 [Miralax] 17 gram Powder In Packet 17 g PO DAILY lorazepam 0.5 mg Tablet 0.5 mg PO BID PRN (Reason: Anxiety) vitamin E [Vitamin E-400] 268 mg (400 unit) Capsule 268 mg PO DAILY memantine 10 mg Tablet 10 mg PO DAILY@1500 trazodone 50 mg Tablet 25 mg PO BID PRN (Reason: anxiety/insomnia/mild agitation) olanzapine [Zyprexa] 2.5 mg Tablet 2.5 mg PO BID Rx Instructions: in addition to 2.5 mg tid prn order olanzapine [Zyprexa] 2.5 mg Tablet 2.5 mg PO TID PRN (Reason: agitation/psychosis) Rx Instructions: in addition to 2.5 mg bid dose acetaminophen 325 mg Tablet 650 mg PO Q6H PRN (Reason: Fever Or Pain) cefuroxime axetil 250 mg tablet 250 mg PO BID 5 Days Qty: 10 0RF
--- NOTE | 2024-02-13 18:13 | PC.NURSE ---
patient awake, not verbal at this time, monitor and storage bin tender placed, iv inserted, labs drawn, ekg performed, pt to have ct scan, call stauffer within reach, will continue to monitor.
[2024-02-13 18:14] LABS: MANUAL DIFF FLAG NO
[2024-02-13 18:23] LABS: Basophils Percent Auto 0.4 % (0-2); Eosinophils Absolute Auto 0.1 X10*3/uL (0.0-0.4); Eosinophils Percent Auto 0.9 % (0-4); Hematocrit 45.6 % (42.0-52.0); Imm Gran Abs Auto 0.06 X10*3/uL (0.00-0.03); Imm Gran Pct Auto 0.6 % (0.0-0.4); Lymphocytes Percent Auto 18.8 % (20-40); Mean Corpuscular HGB Conc 35.1 g/dl (31.0-36.0); Mean Corpuscular Hemoglobin 32.3 pg (27.0-33.0); Mean Corpuscular Volume 91.9 fL (80.0-98.0); Mean Platelet Volume 10.3 fL (9.4-12.4); Monocytes Absolute Auto 0.8 X10*3/uL (0.1-1.2); Monocytes Percent Auto 7.5 % (2-11); Neutrophils Absolute Auto 7.6 x10*3/uL (2.0-8.3); Neutrophils Percent Auto 71.8 % (45-73); Platelet Count 186 X10*3/uL (160-400); Red Blood Count 4.96 X10*6/uL (4.60-5.80); Red Cell Distribution Width 12.9 % (11.0-16.0); White Blood Count 10.6 X10*3/uL (4.8-10.8)
--- NOTE | 2024-02-13 18:25 | PC.NURSE ---
Addendum entered by Julianne Jennings RN 02/13/24 18:32: provider notified Original Note: pt ripped off collar in CT scan per senior telecommunications technician.
[2024-02-13 18:46] LABS: Troponin-I High Sensitivity < 2.7 ng/L (<3.5-35.0)
[2024-02-13] MEDS: Nitrofurantoin Monohyd/M-Cryst 100 MG CAPSULE PO (21:06)
== END 2024-02-13 21:11 | disposition skilled nursing facility (03) ==
PROVIDERS: Emergency Provider Student in an Organized Health Care Education/Training Program; PCP Emergency Medicine
DX: S09.90XA Unspecified injury of head, initial encounter (principal); N39.0 Urinary tract infection, site not specified; F33.1 Major depressive disorder, recurrent, moderate; I45.10 Unspecified right bundle-branch block; R45.851 Suicidal ideations; M54.2 Cervicalgia; R51.9 Headache, unspecified; W01.10XA Fall on same level from slipping, tripping and stumbling with subsequent striking against unspecified object, initial encounter; Y93.9 Activity, unspecified; Y92.9 Unspecified place or not applicable; Y99.8 Other external cause status; Z79.899 Other long term (current) drug therapy
CPT/HCPCS: 36415; 70450; 72125; 84484; 85025; 93005; 99284

== ENCOUNTER → 2024-02-13 17:50 | Outpatient (BNV) | payer MEDICARE, MEDICAID, SELFPAY | PROVIDERS: Emergency Provider Student in an Organized Health Care Education/Training Program; PCP Emergency Medicine; Visit Provider Internal Medicine Cardiovascular Disease | DX: R94.31 Abnormal electrocardiogram [ECG] [EKG] (principal) | CPT/HCPCS: 93010 ==